=== PATIENT | male | born 1965 | race Caucasian/White ===

== ENCOUNTER 2017-03-11 11:34 | Emergency (ER) | payer BC ==
[~2017-03-11] VITALS: Ht 185.4 cm; Wt 109.8 kg
[~2017-03-11 11:34] MED LIST: NAPROXEN500 MG PO; NOHOMEMEDS; XANAX0.5 MG PO
[2017-03-11 12:58] LABS: CHLORIDE 106 mEq/L (99-109); POTASSIUM 4.7 mEq/L (3.7-5.4); SODIUM 139 mEq/L (136-147)
[2017-03-11 13:00] LABS: GLUCOSE 95 mg/dL (70-99)
[2017-03-11 13:01] LABS: ANION GAP 8 MEQ/L (2-14)
[2017-03-11 13:02] LABS: TOTAL BILIRUBIN 0.4 mg/dL (0.0-1.0)
[2017-03-11 13:04] LABS: ALKALINE PHOSPHATASE 82 IU/L (3-129); GFR ESTIMATE (CALCULATED) > 59 mL/min/
[2017-03-11 13:05] LABS: UREA NITROGEN (BUN) 13 mg/dL (9-23)
[2017-03-11 14:09] LABS: BASOPHIL COUNT 0.1 K/uL (0-0.1); EOSINOPHIL (%) 2.2 % (0-5); EOSINOPHIL COUNT 0.2 K/uL (0-0.3); HEMATOCRIT 50.4 % (38.0-50.0); IMMATURE GRANULOCYTE (%) 0.4 % (0.0-0.7); INSTRUMENT ABS NEUTROPHIL CT 4.5 K/uL; LYMPHOCYTE COUNT 2.3 K/uL (1.0-2.8); MCH 31.4 PG (29.0-34.0); MCHC 33.7 G/DL (30.0-36.0); MEAN PLAT.VOLUME 11.1 uM^3 (9.0-12.4); MONOCYTE (%) 11.2 % (3-12); MONOCYTE COUNT 0.9 K/uL (0-0.8); NEUTROPHIL (%) 56.5 % (45-76); NEUTROPHIL COUNT 4.5 K/uL (1.8-6.4); PLATELET COUNT 225 K/uL (156-360); RBC DIS.WIDTH-CV 12.5 % (11.8-14.6); RBC DIS.WIDTH-SD 42.9 % (39-53); RED BLOOD COUNT 5.42 M/uL (4.00-5.50); WHITE BLOOD COUNT 7.9 K/uL (4.1-10.2)
[2017-03-11 14:19] LABS: LIPASE 19 U/L (1.0-51.0)
[2017-03-11 15:22] LABS: ADD MIUA? NO; BILIRUBIN NEGATIVE; BLOOD NEGATIVE; COLOR YELLOW ((YELLOW)); GLUCOSE (STRIP) NEGATIVE; KETONES NEGATIVE; LEUKOCYTES NEGATIVE; NITRITE NEGATIVE; PROTEIN (STRIP) NEGATIVE; SPECIFIC GRAVITY 1.013 (1.000-1.030); UROBILINOGEN 0.2 MG/DL (0.2-1.0)
[2017-03-11] MEDS ORDERED: OMEPRAZOLE40 M1 PO (15:59)
[2017-03-11] MEDS ORDERED: ZOFRAN ODT4 MG PO (15:59)
[2017-03-11 16:21] VITALS: BP 104/82
== END 2017-03-11 16:22 | disposition home or self-care (01) ==
LOC: EME 11:34
PROVIDERS: Nurse Practitioner Family; Physician Assistant
DX: R10.30 Lower abdominal pain, unspecified (principal); F43.10 Post-traumatic stress disorder, unspecified; F17.200 Nicotine dependence, unspecified, uncomplicated
CPT/HCPCS: 74022; 76705; 80053; 81003; 83690; 85025; 99281; 99284